=== PATIENT | male | born 1980 | race African-American/Black ===

== ENCOUNTER 2021-05-10 11:18 | Emergency (ER) | payer OTHER ==
[~2021-05-10] VITALS: Ht 195.6 cm; Wt 124.7 kg
[~2021-05-10 11:18] MED LIST: NOHOMEMEDICATIONS; NORCO 7.5-3251 EACH PO; PRENATAL ONE T1 EACH PO; PROAIR HFA8.5 GM IH; VITAMIN B-1100 M1 PO; ZPAK PO
[2021-05-10 11:58] LABS: URINE BILIRUBIN NEGATIVE (Negative); URINE BLOOD NEGATIVE (Negative); URINE CLARITY CLEAR; URINE COLOR YELLOW; URINE GLUCOSE-RANDOM* NEGATIVE (Negative); URINE KETONES NEGATIVE (Negative); URINE LEUKOCYTES-REFLEX NEGATIVE (Negative); URINE NITRITE-REFLEX NEGATIVE (Negative); URINE PROTEIN (DIPSTICK) NEGATIVE (Negative); URINE SPECIFIC GRAVITY <= 1.005 (1.005-1.035); URINE UROBILINOGEN 0.2 E.U./dl (0.2-1.0)
[2021-05-10 12:07] LABS: ABSOLUTE NEUTROPHILS 4.2 thou/uL (1.4-8.2); BASOPHILS 0.6 % (0.0-2.0); EOSINOPHILS 0.5 % (0.0-3.0); HEMATOCRIT 37.1 % (42.0-52.0); HEMOGLOBIN 12.2 gm/dL (14.0-18.0); LYMPHOCYTES 26.1 % (24.0-44.0); MCH 30.1 pg (26.0-34.0); MCV 91.3 fL (80.0-100.0); MONOCYTES 10.6 % (1.0-8.0); PLATELET COUNT 160 thou/uL (150-400); POLYS 62.2 % (36.0-66.0); RBC 4.06 mil/uL (4.50-6.00); RDW 15.2 % (10.5-14.5); WBC 6.7 thou/uL (4.0-11.0)
[2021-05-10 12:40] LABS: CALCIUM 8.5 mg/dL (8.5-10.1); CREATININE 1.4 mg/dL (0.7-1.3); POTASSIUM 4.1 mmol/L (3.5-5.1)
[2021-05-10 12:46] LABS: ALBUMIN 3.1 g/dL (3.4-5.0); TOTAL BILIRUBIN 0.5 mg/dL (0.2-1.0); TOTAL PROTEIN 6.2 g/dL (6.4-8.2)
[2021-05-10] MEDS ORDERED: PREDNISONE 10 M10 M1 PO (13:09)
[2021-05-10] MEDS ORDERED: NORCO5 PO (13:09)
[2021-05-10] MEDS ORDERED: FLEXERIL PO (13:09)
[2021-05-10 13:25] VITALS: BP 172/111
== END 2021-05-10 13:27 | disposition home or self-care (01) ==
LOC: ER 11:18
PROVIDERS: Emergency Medicine
DX: M54.41 Lumbago with sciatica, right side (principal); F17.210 Nicotine dependence, cigarettes, uncomplicated; Z72.89 Other problems related to lifestyle